=== PATIENT | female | born 1995 | race Caucasian/White ===

== ENCOUNTER 2019-02-03 14:16 | Observation (INO) | payer MEDICAID, OTHER ==
[~2019-02-03] VITALS: Ht 152.4 cm; Wt 43.5 kg
[2019-02-03 14:25] VITALS: BP 116/80
[2019-02-03] MEDS ORDERED: ACETAMINOPHEN EXTRA STRENGTH 500 MG TAB PO ONE (14:30)
--- NOTE | 2019-02-03 14:31 | NUR ---
PT TRIAGED AND SENT TO ER LOBBY
[2019-02-03] MEDS ORDERED: ACETAMINOPHEN EXTRA STRENGTH 500 MG TAB ONE (14:40)
[2019-02-03 15:00] LABS: BASOPHILS # (AUTO) 0.1 K/uL (0.00-0.22); BASOPHILS % (AUTO) 0.4 % (0.0-2.0); HEMATOCRIT 38.4 % (36-48); HEMOGLOBIN 12.6 g/dL (12.0-16.0); LYMPHOCYTES # (AUTO) 0.6 K/uL (2.5-16.5); LYMPHOCYTES % (AUTO) 2.7 % (20.5-51.1); MEAN CORPUSCULAR HEMOGLOBIN 28 pg (27-31); MEAN CORPUSCULAR HGB CONC 33 g/dL (33-37); MEAN CORPUSCULAR VOLUME 84.7 fL (80-94); MONOCYTES # (AUTO) 1.1 K/uL (0.8-1.0); MONOCYTES % (AUTO) 5.2 % (1.7-9.3); NEUTROPHILS # (AUTO) 20.4 K/uL (1.8-7.7); NEUTROPHILS % (AUTO) 91.7 % (42.2-75.2); PLATELET COUNT (AUTO) 295 K/uL (140-450); RED BLOOD CELL COUNT(AUTO) 4.54 MIL/uL (4.20-5.40); RED CELL DISTRIBUTION WIDTH 16.4 % (11.6-13.7); WHITE BLOOD COUNT (AUTO) 22.2 K/uL (4.8-10.8)
[2019-02-03 15:10] LABS: APPEARANCE,URINE HAZY (CLEAR); BILIRUBIN,URINE NEGATIVE (NEGATIVE); BLOOD, URINE 2+ (NEGATIVE); COLOR,URINE YELLOW (YELLOW); LEUKOCYTE ESTERASE ,URINE 1+ (NEGATIVE); NITRITE, URINE POSITIVE (NEGATIVE); UGLUCOSE NEGATIVE (NEGATIVE)
[2019-02-03 15:23] LABS: RBC,URINE 0-5 /HPF (0-5); WBC,URINE TOO MANY TO COUNT /HPF (0-5)
[2019-02-03 15:58] LABS: ALBUMIN 4.4 g/dL (3.4-5.0); ANION GAP 17.8 (8-16); CARBON DIOXIDE 23.1 mmol/L (21-32); CREATININE 0.9 mg/dL (0.6-1.3); TOTAL BILIRUBIN 1.1 mg/dL (0.0-1.0)
[2019-02-03 16:01] LABS: POTASSIUM 2.9 mmol/L (3.5-5.1)
--- NOTE | 2019-02-03 16:13 | NUR ---
PT TO CHAIR E
--- NOTE | 2019-02-03 16:17 | NUR ---
PT AMBULATED TO BED 10
[2019-02-03] MEDS ORDERED: POTASSIUM CHL 20 MEQ/NACL 0.9% 1,000 ML IV ONE (16:30)
[2019-02-03] MEDS ORDERED: PIPERACILLIN/TAZOBACTAM 3.375 GM in DEXTROSE 5% 50 ML IV ONE (16:30)
[2019-02-03] MEDS ORDERED: VANCOMYCIN 1,000 MG in DEXTROSE 5% 250 ML IV ONE (16:30)
--- NOTE | 2019-02-03 16:31 | NUR ---
TEMP IS NOW 100.3
--- NOTE | 2019-02-03 16:33 | NUR ---
24 Y FEMALE PT C/O ACHING GENERAL ABDOMINAL PAIN X 3 DAYS. DENIES NVD. BOWEL SOUNDS ACTIVE IN ALL 4 QUADRANTS. LAST BM YESTERDAY. HX OF OVARIAN CYST REMOVAL IN AUGUST. DENIES CP/SOB/COUGH. STILL HAS APPENDIX. POTASSIUM 2.9. BP 99/58. PT REPORTS PAIN RELIEF AFTER TYLENOL GIVEN IN TRIAGE. BED IS DOWN, LOCKED, BED RAIL X 1, ERMD NOTIFIED. PMH- NONE
[2019-02-03] MEDS ORDERED: NACL 0.9% 1,000 ML IV ONE (16:35)
[2019-02-03] MEDS ORDERED: KCL 20 MEQ/WATER INJ PREMIX 200 ML IV ONE (16:45)
[2019-02-03] MEDS ORDERED: VANCOMYCIN 1,000 MG VIAL ONE (16:46)
[2019-02-03] MEDS ORDERED: PIPERACILLIN/TAZOBACTAM 3.375 GM VIAL IV ONE (16:46)
--- NOTE | 2019-02-03 17:03 | NUR ---
RAD AT BEDSIDE
--- NOTE | 2019-02-03 17:03 | NUR ---
FLU SWAB COLLECTED
--- NOTE | 2019-02-03 18:02 | NUR ---
PT SIGNED CONSENT FORM FOR CT WITH CONTRAST
--- NOTE | 2019-02-03 18:06 | NUR ---
PT BEING TAKEN TO CT
--- NOTE | 2019-02-03 18:52 | NUR ---
VANCO STOPPED AND POTASSIUM STARTED BECAUSE POTASSIUM IS 2.9, WILL RESUME VANCO AFTER POTASSIUM
--- NOTE | 2019-02-03 18:52 | NUR ---
Duyen colón in EDM - 02/03/19 at 2011 by [email or web address] VANCO STOPPED AND POTASSIUM STARTED BECAUSE POTASSIUM IS 2.9, WILL RESUME VANCO AFTER POTASSIUM
--- NOTE | 2019-02-03 19:10 | NUR ---
PT LAYING IN BED, ABX STARTED, PT NAUSEAS, VOMITED X 2, ANOTHER IV LINE STARTED. BED IN LOW POSITION, HOB ELEVATED, PT BEING ADMITTED TO MS. WILL CONTINUE TO MONITOR.PENDING ADMIT.
--- NOTE | 2019-02-03 19:15 | NUR ---
SET UP PELVIC EXAM, ASSISTED ER MD. PATIENT TOLERATING WELL. WILL CONTINUE TO MONITOR.
[2019-02-03] MEDS ORDERED: AZITHROMYCIN 250 MG TAB PO ONE (19:20)
[2019-02-03] MEDS ORDERED: cefTRIAXone 250 MG in LIDOCAINE MPF 1% - 5 mL VIAL 0.9 ML IM ONE (19:20)
[2019-02-03] MEDS ORDERED: HYDROcodone/APAP 5/325 MG 1 TAB TAB PO PRN ×2 (19:40)
[2019-02-03] MEDS ORDERED: ACETAMINOPHEN 325 MG TAB PO PRN (19:40)
--- NOTE | 2019-02-03 20:00 | NUR ---
Patient will be admitted to care of [facility]. Admited to [facility]. Will go to room 219A. Belongings list completed. Report to NIKOLAS GARRETT, VSS.
--- NOTE | 2019-02-03 20:00 | NUR ---
VANCOMYCIN WAS GIVEN TO NIKOLAS GARRETT AND WILL CONTINUE TO INFUSE ON THE [facility] FLOOR.
[2019-02-03 20:20] VITALS: BP 101/49
--- NOTE | 2019-02-03 20:20 | NUR ---
Admitted from ER TO MED-SURGICAL UNIT , with chief complaint of LOWER ABDOMINAL PAIN AND FEVER, SINCE LAST NIGHT. AFEBRILE AT THIS TIME, 24 y/o ,Female, Cooperative, AWAKE, A/OX4. RESPIRATION EVEN AND UNLABORED, IV SALINE LOCK AT THE RIGHT AC G20, PATENT AND INTACT. ABLE TO AMBULATE INDEPENDENTLY. DOES NOT SMOKE NOR DRINK ALCOHOL BUT DRINKS A LOT OF COKE, USES IT INSTEAD OF WATER. ADVICE TO DRINK MORE WATER AND AVOID SODA. PLAN OF CARE FOR THE SHIFT DISCUSSED. VERBALIZED UNDERSTANDING. DENIES PAIN 0/10. AT THE BEDSIDE.oriented to call light, bed, phone,television, bathroom, smoking policy,visiting hours, procedures, ID bracelet on. Belongings list checked.
--- NOTE | 2019-02-03 20:41 | NUR ---
Patient's Plan of Care was discussed and reviewed with OUTSIDE SALES: NIKOLAS BROOKS
[2019-02-03] MEDS ORDERED: TEMAZEPAM 15 MG CAP PO PRN (23:30)
[2019-02-04] VITALS: BP 99/47
--- NOTE | 2019-02-04 01:40 | NUR ---
UNABLE TO SLEEP, MEDICATED WITH RESTORIL 15 MG. PO ORDERED.
--- NOTE | 2019-02-04 02:40 | NUR ---
SLEEPING COMFORTABLY IN BED.
--- NOTE | 2019-02-04 07:15 | NUR ---
RECEIVED PT REPORT FROM THE [employer]OCIATE NURSE AT BEDSIDE. PT IS AAOX4. INTRODUCED MYSELF AND UPDATED THE BOARD. RIGHT AND LEFT AC, 20G, BOTH INTACT AND CLEAN, SL. PT IS AMBULATORY WITHOUT ASSISTANCE. POC DISCUSSED PT VERBALIZED UNDERSTANDING. WILL CONTINUE TO MONITOR PT.
[2019-02-04 07:49] LABS: ALBUMIN 3.1 g/dL (3.4-5.0); ANION GAP 15.1 (8-16); CARBON DIOXIDE 20.7 mmol/L (21-32); CREATININE 0.8 mg/dL (0.6-1.3); MAGNESIUM 2.1 mg/dL (1.8-2.4); TOTAL BILIRUBIN 0.6 mg/dL (0.0-1.0)
[2019-02-04 08:00] VITALS: BP 101/50
--- NOTE | 2019-02-04 08:00 | NUR ---
VITALS TAKEN, WILL ADMINISTER TYLENOL FOR MILD FEVER, 100.2. PT STATED SHE HAD BMX1 THIS MORNING, NO DIARRHEA. .
[2019-02-04 08:03] LABS: BASOPHILS % (AUTO) 0.1 % (0.0-2.0); HEMATOCRIT 32.8 % (36-48); HEMOGLOBIN 10.8 g/dL (12.0-16.0); LYMPHOCYTES # (AUTO) 0.9 K/uL (2.5-16.5); MEAN CORPUSCULAR HEMOGLOBIN 28 pg (27-31); MEAN CORPUSCULAR HGB CONC 33 g/dL (33-37); MEAN CORPUSCULAR VOLUME 85.3 fL (80-94); MONOCYTES # (AUTO) 1.5 K/uL (0.8-1.0); NEUTROPHILS # (AUTO) 15.9 K/uL (1.8-7.7); NEUTROPHILS % (AUTO) 86.9 % (42.2-75.2); PLATELET COUNT (AUTO) 230 K/uL (140-450); RED BLOOD CELL COUNT(AUTO) 3.85 MIL/uL (4.20-5.40); RED CELL DISTRIBUTION WIDTH 16.6 % (11.6-13.7); WHITE BLOOD COUNT (AUTO) 18.2 K/uL (4.8-10.8)
[2019-02-04 08:04] LABS: POTASSIUM 2.8 mmol/L (3.5-5.1)
--- NOTE | 2019-02-04 08:15 | NUR ---
PAGED DR LINDSEY, FOR K 2.8
--- NOTE | 2019-02-04 08:58 | NUR ---
DR KLEIN CALLED BACK, ORDER RECEIVED FOR K.
[2019-02-04] MEDS: POTASSIUM CHLORIDE 10 MEQ TABER PO SCH ×2 (09:13→13:05)
[2019-02-04] MEDS ORDERED: CEPH250C16 PO (10:43)
--- NOTE | 2019-02-04 12:18 | NUR ---
IV ROCEPHIN GIVEN, STARTED INFUSING. Addendum: 02/04/19 at 1321 by Barrie Quintanilla RN 1G ROCEPHIN IN 50ML D5 IVPB, INFUSING ON RIGHT AC, 20 G. AT RATE OF 100ML/HR
--- NOTE | 2019-02-04 12:48 | NUR ---
IV ROCEPHIN FINISHED. 50ML INFUSED.
--- NOTE | 2019-02-04 13:05 | NUR ---
PT HAD LUNCH, NO S/S OF DISTRESS. PT AMBULATED TO RESTROOM. PT URINE IS PALE YELLOW RIGHT NOW.
--- NOTE | 2019-02-04 14:18 | NUR ---
DISCHARGE INSTRUCTIONS GIVEN. MEDICATION TEACHING GIVEN. PT VERBALIZED UNDERSTANDING. RX GIVEN TO PT. PT DENIES PAIN AT THIS TIME. DC'D IV ON LEFT AND RIGHT AC, TIPS ARE INTACT, PRESSURE APPLIED. NO SIGNS OF BLEEDING. PT WAITING TO BE PICKED UP BY HER . Addendum: 02/04/19 at 1426 by Barrie Quintanilla RN DC INSTRUCTION WAS GIVEN AT 1345.
--- NOTE | 2019-02-04 14:20 | NUR ---
PT LEFT WITH HER FAMILY. ALL BELONGINGS WERE TAKEN.
[2019-02-06 06:16] LABS: CHLAMYDIA TRACHOMATIS AMP DNA Negative (Negative)
== END 2019-02-04 14:19 | disposition home or self-care (01) ==
LOC: MED 14:16 → MTU 19:44
PROVIDERS: ADMIT Internal Medicine Pulmonary Disease; ATTEND Internal Medicine Pulmonary Disease
DX: N30.90 Cystitis, unspecified without hematuria (principal); R65.10 Systemic inflammatory response syndrome (SIRS) of non-infectious origin without acute organ dysfunction; E87.6 Hypokalemia
CPT/HCPCS: 36415; 71045; 74177; 80053; 81001; 82150; 83605; 83690; 83735; 84703; 85025; 87081; 87086; 87186; 87210; 87491; 87804; 96365; 96366; 96367; 96368; 96372; 99285; G0378; J0696; J2001; J2543; J3370; J3480; J7060; Q0092; Q9967

== ENCOUNTER 2020-11-18 15:42 | Emergency (ER) | payer OTHER ==
[~2020-11-18] VITALS: Ht 152.4 cm; Wt 42.2 kg
[~2020-11-18 15:42] MED LIST: CEPH250C16 PO
--- NOTE | 2020-11-18 15:42 | NUR ---
Patient [facility] PD officer for pre-book medical screening exam, transferred to bed 13. RN evaluating patient.
[2020-11-18 15:43] VITALS: BP 133/78
--- NOTE | 2020-11-18 16:01 | NUR ---
25 y/o female bib [place] [employer] for prebook clearance. Pt states she has pre-existing abrasion to lip caused by braces. Denies pain. No bleeding noted.
[2020-11-18 16:32] VITALS: BP 133/78
--- NOTE | 2020-11-18 16:32 | NUR ---
PATIENT BIB [place]. PATIENT EXAMINED BY DR. Muhammad. PATIENT MEDICALLY CLEARED AND RELEASED IN CUSTODY IN STABLE CONDITION. ORIGINAL PRE-BOOK FORM GIVEN TO OFFICER Anoop.
== END 2020-11-18 16:32 ==
LOC: MED 15:42
DX: S01.511A Laceration without foreign body of lip, initial encounter (principal); Z02.89 Encounter for other administrative examinations; Z79.899 Other long term (current) drug therapy; W51.XXXA Accidental striking against or bumped into by another person, initial encounter; Y93.89 Activity, other specified; Y92.89 Other specified places as the place of occurrence of the external cause; Y99.8 Other external cause status
CPT/HCPCS: 99283

== ENCOUNTER 2022-04-10 04:00 | Emergency (ER) | payer MEDICAID, OTHER ==
[~2022-04-10] VITALS: Ht 160 cm; Wt 63.5 kg
[2022-04-10 04:04] VITALS: BP 138/90
[2022-04-10] MEDS ORDERED: FAMOTIDINE 20 MG/2 ML VIAL IVP ONE (04:10)
[2022-04-10] MEDS ORDERED: NACL 0.9% 1,000 ML IV ONE (04:10)
[2022-04-10] MEDS ORDERED: FAMO-92 PO (05:27)
[2022-04-10 05:30] VITALS: BP 138/90
== END 2022-04-10 05:31 | disposition home or self-care (01) ==
LOC: MED 04:00
DX: S09.90XA Unspecified injury of head, initial encounter (principal); S00.83XA Contusion of other part of head, initial encounter; S10.93XA Contusion of unspecified part of neck, initial encounter; F10.129 Alcohol abuse with intoxication, unspecified; R11.10 Vomiting, unspecified; Z79.899 Other long term (current) drug therapy; Z79.2 Long term (current) use of antibiotics; Y08.89XA Assault by other specified means, initial encounter; Y93.89 Activity, other specified; Y92.89 Other specified places as the place of occurrence of the external cause; Y99.8 Other external cause status
CPT/HCPCS: 70450; 96361; 96374; 99284; J3490; J7030; 81025

== ENCOUNTER 2022-09-20 12:00 | Emergency (ER) | payer MEDICAID ==
[~2022-09-20] VITALS: Ht 152.4 cm; Wt 43.5 kg
[~2022-09-20 12:00] MED LIST changes: +FAMO-92 PO
[2022-09-20 12:22] VITALS: BP 106/68
--- NOTE | 2022-09-20 12:36 | NUR ---
PT AMB TO BED 1.
--- NOTE | 2022-09-20 12:40 | NUR ---
27/F WALKED IN C/O LOW ABD PAIN ONSET 3 DAYS AND STATES BLOODY EMESIS 1 EPISODE YESTERDAY. PT ALSO C/O LEFT FOOT SWELLING AND PAIN ONSET 1 WK. PT REPORTS FX TO THE LEFT FOOT 10 MONTHS AGO. AAO4, AMBULATORY, VITALS STABLE. C/O LEFT FOOT SWELLING, HURTING 1 WEEK.
[2022-09-20] MEDS ORDERED: KETOROLAC 60 MG/2 ML VIAL IM ONE (12:50)
--- NOTE | 2022-09-20 13:20 | NUR ---
US AT BEDSIDE
[2022-09-20 13:38] LABS: BASOPHILS # (AUTO) 0.1 K/uL (0.00-0.22); BASOPHILS % (AUTO) 0.8 % (0.0-2.0); EOSINOPHILS % (AUTO) 0.3 % (0.0-4.0); HEMATOCRIT 39.6 % (36-48); HEMOGLOBIN 13.2 g/dL (12.0-16.0); LYMPHOCYTES # (AUTO) 1.7 K/uL (2.5-16.5); LYMPHOCYTES % (AUTO) 24.2 % (20.5-51.1); MEAN CORPUSCULAR HEMOGLOBIN 32 pg (27-31); MEAN CORPUSCULAR HGB CONC 33 g/dL (33-37); MEAN CORPUSCULAR VOLUME 94.5 fL (80-94); MONOCYTES # (AUTO) 0.6 K/uL (0.8-1.0); MONOCYTES % (AUTO) 8.8 % (1.7-9.3); NEUTROPHILS # (AUTO) 4.8 K/uL (1.8-7.7); NEUTROPHILS % (AUTO) 65.9 % (42.2-75.2); PLATELET COUNT (AUTO) 331 K/uL (140-450); RED BLOOD CELL COUNT(AUTO) 4.19 MIL/uL (4.20-5.40); RED CELL DISTRIBUTION WIDTH 12.9 % (11.6-13.7); WHITE BLOOD COUNT (AUTO) 7.2 K/uL (4.8-10.8)
[2022-09-20 14:02] LABS: APPEARANCE,URINE SL CLOUDY (CLEAR); BILIRUBIN,URINE 1+ (NEGATIVE); BLOOD, URINE NEGATIVE (NEGATIVE); COLOR,URINE YELLOW (YELLOW); LEUKOCYTE ESTERASE ,URINE 3+ (NEGATIVE); NITRITE, URINE NEGATIVE (NEGATIVE); UGLUCOSE NEGATIVE (NEGATIVE)
[2022-09-20 14:19] LABS: RBC,URINE 0-5 /HPF (0-5); WBC,URINE 16-25 (MOD) /HPF (0-5)
[2022-09-20 14:22] LABS: ALBUMIN 3.7 g/dL (3.4-5.0); ANION GAP 11.6 (8-16); CREATININE 0.7 mg/dL (0.6-1.3); POTASSIUM 3.6 mmol/L (3.5-5.1); TOTAL BILIRUBIN 0.5 mg/dL (0.0-1.0)
[2022-09-20 14:55] VITALS: BP 127/85
[2022-09-20] MEDS ORDERED: cephALEXin 500 MG CAP PO ONE (15:25)
[2022-09-20] MEDS ORDERED: CEPH-588 PO (15:57)
[2022-09-20] MEDS ORDERED: PYR100 PO (15:59)
--- NOTE | 2022-09-22 17:41 | NUR ---
LATE ENTRY, RECEIVED POSITIVE URINE CULTURE. FORM GIVEN TO DR HERNANDEZ. TREATMENT APPROPRIATE. FORM PLACED IN BINDER.
== END 2022-09-20 16:00 | disposition home or self-care (01) ==
LOC: MED 12:00
DX: N39.0 Urinary tract infection, site not specified (principal)
CPT/HCPCS: 36415; 76830; 80053; 81001; 81025; 82150; 83690; 85025; 87086; 96372; 99284; J1885; Q0092

== ENCOUNTER 2023-05-28 13:29 | Emergency (ER) | payer BC, MEDICAID ==
[~2023-05-28] VITALS: Ht 157.5 cm; Wt 56.2 kg
[~2023-05-28 13:29] MED LIST changes: +CEPH-588 PO; +PYR100 PO
[2023-05-28 13:30] VITALS: BP 110/80; PULSE 117; RESP 17; TEMP 100.3; O2SAT 97
[2023-05-28 14:15] LABS: APPEARANCE,URINE CLEAR (CLEAR); BILIRUBIN,URINE NEGATIVE (NEGATIVE); BLOOD, URINE NEGATIVE (NEGATIVE); COLOR,URINE YELLOW (YELLOW); LEUKOCYTE ESTERASE ,URINE 1+ (NEGATIVE); NITRITE, URINE NEGATIVE (NEGATIVE); PH,URINE 6.5 (5.0-9.0); UGLUCOSE NEGATIVE (NEGATIVE)
[2023-05-28 14:28] LABS: RBC,URINE 0-5 /HPF (0-5)
[2023-05-28 14:29] LABS: OTHER CASTS, URINE EPITHELIAL CASTS 1+ /LPF (None Seen); TRICHOMONAS,URINE None Seen /HPF (None Seen); YEAST,URINE None Seen /HPF (None Seen)
[2023-05-28 14:30] LABS: BASOPHILS % (AUTO) 0.1 % (0.0-2.0); EOSINOPHILS % (AUTO) 0.1 % (0.0-4.0); HEMATOCRIT 36.3 % (36-48); HEMOGLOBIN 12.1 g/dL (12.0-16.0); LYMPHOCYTES # (AUTO) 0.6 K/uL (2.5-16.5); LYMPHOCYTES % (AUTO) 3.6 % (20.5-51.1); MEAN CORPUSCULAR HEMOGLOBIN 31 pg (27-31); MEAN CORPUSCULAR HGB CONC 33 g/dL (33-37); MEAN CORPUSCULAR VOLUME 93.9 fL (80-94); MONOCYTES # (AUTO) 1.1 K/uL (0.8-1.0); MONOCYTES % (AUTO) 7.4 % (1.7-9.3); NEUTROPHILS # (AUTO) 13.5 K/uL (1.8-7.7); NEUTROPHILS % (AUTO) 88.8 % (42.2-75.2); PLATELET COUNT (AUTO) 264 K/uL (140-450); RED BLOOD CELL COUNT(AUTO) 3.87 MIL/uL (4.20-5.40); RED CELL DISTRIBUTION WIDTH 13.1 % (11.6-13.7); WHITE BLOOD COUNT (AUTO) 15.3 K/uL (4.8-10.8)
[2023-05-28] MEDS ORDERED: KETOROLAC 15 MG/ML VIAL IVP ONE (14:35)
[2023-05-28 14:36] LABS: ANION GAP 11.2 (8-16); CARBON DIOXIDE 28.2 mmol/L (21-32); CREATININE 0.7 mg/dL (0.6-1.3); POTASSIUM 3.4 mmol/L (3.5-5.1)
--- NOTE | 2023-05-28 14:41 | NUR ---
PATIENT ELOPED FROM FACILITY. DISCHARGE INSTRUCTIONS NOT GIVEN TO PATIENT. DR. MOJICA NOTIFIED.
[2023-05-28] MEDS ORDERED: CEPH-588 PO (14:54)
== END 2023-05-28 14:41 | disposition left against medical advice (07) ==
LOC: MED 13:29
DX: N39.0 Urinary tract infection, site not specified (principal); Z79.899 Other long term (current) drug therapy
CPT/HCPCS: 36415; 80048; 81001; 81025; 85025; 87086; 99283